=== PATIENT | male | born 1940 | race Caucasian/White ===

== ENCOUNTER → 2018-03-10 | Outpatient (CLI) | payer MEDICARE ==
[~2018-03-10] MED LIST: ACET-2247 PO; CALC600T12 PO; CANA300T PO; COMB5OS OS; HUM10VIA SQ; INSU100I21 SQ; LATA2.5D2 OU; METF-444 PO; MULT-578 PO; NIAC500T22 PO; OMEP20TA2 PO; PRAS1TAB3 PO; QUIN10TA PO; SUCR1ORA5 PO; WARF7.5T49 PO
== END | disposition home or self-care (01) ==
LOC: SLP 20:05
PROVIDERS: ATTEND Internal Medicine
DX: G47.33 Obstructive sleep apnea (adult) (pediatric) (principal)
CPT/HCPCS: 95810

== ENCOUNTER → 2018-03-17 | Outpatient (CLI) | payer MEDICARE | END | disposition home or self-care (01) | LOC: SLP 10:00 | PROVIDERS: ATTEND Internal Medicine | DX: G47.33 Obstructive sleep apnea (adult) (pediatric) (principal) | CPT/HCPCS: 95811 ==